=== PATIENT | female | born 1940 | race Caucasian/White ===

== ENCOUNTER → 2017-09-12 | Outpatient (CLI) | payer OTHER | END | disposition home or self-care (01) | LOC: MAMMO 06-27 08:00 | DX: Z12.31 Encounter for screening mammogram for malignant neoplasm of breast (principal) ==

== ENCOUNTER → 2018-06-09 | Outpatient (CLI) | payer OTHER ==
[~2018-06-09] MED LIST: ASPIRIN CHEWABL81 MG PO; B COMPLEX1 EACH PO; NORCO 5-325 TA1 EACH PO; OCUVEL CAPSULE1 EACH PO; OSTEO BI-FLEX1 EACH PO; ZESTORETIC 20-1 EACH PO
== END | disposition home or self-care (01) ==
DX: M11.261 Other chondrocalcinosis, right knee (principal)

== ENCOUNTER → 2018-11-06 | Day surgery (SDC) | payer OTHER ==
[~2018-11-06] VITALS: Ht 162.5 cm; Wt 62.6 kg
--- NOTE | ~2018-11-06 | PROC NOTE ---
[place], [place] PROCEDURE NOTE NAME: [id number] UNIT #: [id number] ROOM: DOCTOR: BETO WONG MD BIRTHDATE: [birth year] DOS: 11/06/2018 PREOPERATIVE DIAGNOSIS: Right temporal scalp basal cell carcinoma. POSTOPERATIVE DIAGNOSIS: Right temporal scalp basal cell carcinoma. PROCEDURE: Excision of right temporal skin basal cell carcinoma. SURGEON: Beto Wong MD BEEHIVE KILN CHARCOAL BURNER: MALATHI. ANESTHESIA: MAC with local. INDICATIONS: This is a 78-year-old lady who has had a previous excision of a lesion from the right temporal skin area and was found to have basal cell carcinoma who is here for a repeat and wider excision. The procedure and its complications were explained to the patient in detail. Complications that were discussed included but were not limited to bleeding, infection, hematoma/seroma/abscess formation, prolonged pain, and she agrees to proceed. DESCRIPTION OF PROCEDURE: After identifying the patient, the patient was brought to the operating suite and placed in the right lateral position. After time-out procedure was called. IV sedation was administered by the anesthesia team and the parts were then painted and draped in the usual sterile fashion. An elliptical incision was marked and local anesthesia (1% plain lidocaine) was injected in the marked site. Skin incision was made with the help of a skin knife and deepened in layers. The entirety of the lesion was removed and sent for histopathological diagnosis. It was tagged with a long stitch for lateral and a short stitch was superior for better identification and for getting accurate diagnosis on the margins. Thereafter, hemostasis was achieved with the help electrocautery and the skin edges were then approximated with the help of 3-0 nylon in an interrupted fashion and dressing was placed. The patient tolerated the procedure well. There were no complications. She was brought back to the recovery room in stable fashion. Dr. Beto Wong, the attending surgeon, was present throughout the operating case. Beto Wong MD CM:PROCNOTE:PROCEDURE NOTE [id number] BETO WONG MD
[2018-11-06 06:45] VITALS: BP 169/81
[2018-11-06 08:01] VITALS: BP 111/48
[2018-11-06 08:16] VITALS: BP 114/52
[2018-11-06 08:30] VITALS: BP 114/51
== END | disposition home or self-care (01) ==
LOC: SDC 11-03 13:15
DX: C44.319 Basal cell carcinoma of skin of other parts of face (principal); M19.90 Unspecified osteoarthritis, unspecified site; I10 Essential (primary) hypertension; Z79.82 Long term (current) use of aspirin; Z79.899 Other long term (current) drug therapy; Z90.49 Acquired absence of other specified parts of digestive tract; Z98.890 Other specified postprocedural states

== ENCOUNTER → 2019-06-18 | Outpatient (CLI) | payer OTHER | END | disposition home or self-care (01) | LOC: RAD 09:44 | DX: M17.11 Unilateral primary osteoarthritis, right knee (principal); M89.312 Hypertrophy of bone, left shoulder ==

== ENCOUNTER → 2020-12-29 | Outpatient (CLI) | payer OTHER | END | disposition home or self-care (01) | LOC: MAMMO 13:40 | PROVIDERS: ATTEND Internal Medicine | DX: Z12.31 Encounter for screening mammogram for malignant neoplasm of breast (principal); N64.89 Other specified disorders of breast ==

== ENCOUNTER → 2021-02-13 | Day surgery (SDC) | payer OTHER ==
[~2021-02-13] VITALS: Ht 162.5 cm; Wt 63.5 kg
[~2021-02-13] MED LIST changes: +PERCOCET 5-3251 EACH PO
[2021-02-13 07:59] VITALS: BP 173/71
[2021-02-13 10:20] VITALS: BP 124/47
[2021-02-13 10:35] VITALS: BP 141/59
[2021-02-13 10:50] VITALS: BP 144/67
== END | disposition home or self-care (01) ==
LOC: SDC 01-19 10:15
PROVIDERS: ATTEND Surgery
DX: C44.319 Basal cell carcinoma of skin of other parts of face (principal); I10 Essential (primary) hypertension; Z98.890 Other specified postprocedural states; Z79.82 Long term (current) use of aspirin; Z79.899 Other long term (current) drug therapy